=== PATIENT | male | born 1995 | race American Indian/Alaskan Native ===

== ENCOUNTER 2020-10-25 18:49 | Emergency (ER) | payer BC ==
[2020-10-25] MEDS ORDERED: Acetaminophen 500 MG TAB ONE (19:22)
[2020-10-26 19:21] LABS: SARS-CoV-2 PCR by NAA Not Detected (NotDetected)
== END 2020-10-25 20:40 | disposition home or self-care (01) ==
LOC: ERS 18:49
DX: R50.9 Fever, unspecified (principal); R53.83 Other fatigue; R05 Cough; R51.9 Headache, unspecified; Z20.822 Contact with and (suspected) exposure to COVID-19; F17.210 Nicotine dependence, cigarettes, uncomplicated
CPT/HCPCS: 99283; U0003; U0005